=== PATIENT | female | born 1985 | race Caucasian/White ===

== ENCOUNTER 2017-06-20 19:38 | Emergency (ER) | payer BC ==
[~2017-06-20] VITALS: Ht 157.5 cm; Wt 49.9 kg
[2017-06-20 20:07] VITALS: BP 131/87
== END 2017-06-21 01:48 | disposition left against medical advice (07) ==
LOC: ER 19:38
DX: M54.9 Dorsalgia, unspecified (principal); Z53.21 Procedure and treatment not carried out due to patient leaving prior to being seen by health care provider; V43.52XA Car driver injured in collision with other type car in traffic accident, initial encounter; Y93.89 Activity, other specified; Y92.89 Other specified places as the place of occurrence of the external cause; Y99.8 Other external cause status